=== PATIENT | male | born 1990 | race Asian ===

== ENCOUNTER 2022-06-23 20:40 | Emergency (ER) | payer OTHER ==
[~2022-06-23] VITALS: Ht 172.7 cm; Wt 86.2 kg
[~2022-06-23 20:40] MED LIST: COLCHICINE0.6 MG PO; HYDR1TAB94 PO; ONDA4ODT SL
== END 2022-06-23 23:33 | disposition home or self-care (01) ==
LOC: ER 20:40
DX: S61.011A Laceration without foreign body of right thumb without damage to nail, initial encounter (principal); W45.8XXA Other foreign body or object entering through skin, initial encounter; Y99.0 Civilian activity done for income or pay; Z88.6 Allergy status to analgesic agent; Z79.899 Other long term (current) drug therapy
CPT/HCPCS: 73130

== ENCOUNTER 2022-06-30 09:59 | Emergency (ER) | payer OTHER ==
[~2022-06-30] VITALS: Ht 172.7 cm; Wt 86.2 kg
== END 2022-06-30 10:52 | disposition home or self-care (01) ==
LOC: ER 09:59
DX: Z48.02 Encounter for removal of sutures (principal)
CPT/HCPCS: 99281

== ENCOUNTER 2022-09-02 11:15 | Emergency (ER) | payer OTHER ==
[~2022-09-02] VITALS: Ht 172.7 cm; Wt 88.5 kg
[2022-09-02 11:21] VITALS: BP 161/92
[2022-09-02] MEDS ORDERED: ALLOPURINOL100 M1 PO (12:33)
[2022-09-02] MEDS ORDERED: PRED20 PO (12:59)
[2022-09-02] MEDS ORDERED: HYDR1TAB94 PO (12:59)
== END 2022-09-02 13:14 | disposition home or self-care (01) ==
LOC: ER 11:15
DX: M25.561 Pain in right knee (principal); Z79.899 Other long term (current) drug therapy
CPT/HCPCS: 73562-RT; 99283-25

== ENCOUNTER 2022-09-08 11:05 | Emergency (ER) | payer OTHER ==
[~2022-09-08] VITALS: Ht 172.7 cm; Wt 86.2 kg
[~2022-09-08 11:05] MED LIST changes: +ALLOPURINOL100 M1 PO; +PRED20 PO
[2022-09-08 11:24] VITALS: BP 160/98
== END 2022-09-08 11:50 | disposition home or self-care (01) ==
LOC: ER 11:05
DX: M25.561 Pain in right knee (principal); Z79.899 Other long term (current) drug therapy; Z88.6 Allergy status to analgesic agent
CPT/HCPCS: 99281